=== PATIENT | female | born 1965 | race Caucasian/White ===

== ENCOUNTER 2021-09-17 09:33 | Emergency (ER) | payer BC, SELFPAY ==
[2021-09-17] VITALS (18 sets, daily range): BP systolic 102–123; BP diastolic 60–79; PULSE 56–87; RESP 15–24; TEMP 36.6–37.1; O2SAT 97–100
--- NOTE | ~2021-09-17 | XR_ITS ---
EXAMINATION: XR chest 1V portable DATE: 09/17/2021 10:03 INDICATION: Chest pain TECHNIQUE: frontal view of the chest was obtained. COMPARISON: Chest radiograph dated 04/17/2020 FINDINGS: The lungs remain clear with no focal airspace opacities, pulmonary edema, pleural effusion or pneumot horax. The cardiomediastinal silhouette is normal. Visualized bones and soft tissues are unremarkable . IMPRESSION: 1. No acute cardiopulmonary disease. Reviewed, dictated and finalized at location B.
--- NOTE | 2021-09-17 09:37 | ECG_ITS ---
Measurements Intervals [place] Rate: 71 P: 44 AR: 135 QRS: 13 QRSD: 82 T: 38 QT: 357 QTc: 388 Interpretive Statements SINUS RHYTHM LOW QRS VOLTAGE IN PRECORDIAL LEADS BORDERLINE ECG Electronically Signed On 09-17-2021 10:06:27 CDT by Toñito Orourke D.O.
[2021-09-17] MEDS: Please add drug allergy info to patient profile. 1 EACH XX (09:46)
[2021-09-17 09:53] LABS: Basophils Absolute Auto 0.1 K/mm3 (0.0-0.1); Basophils Percent Auto 0.6 % (0.2-1.2); Eosinophils Absolute Auto 0.1 K/mm3 (0-0.3); Eosinophils Percent Auto 0.6 % (0-4.4); Hematocrit 41.5 % (37.0-47.0); Hemoglobin 13.5 g/dL (12.0-15.0); Immature Granulocyte Absolute 0.03 K/mm3 (0.00-0.031); Immature Granulocyte Percent A 0.2 % (0-0.5); Lymphocytes Absolute Auto 2.32 K/mm3 (0.9-3.2); Lymphocytes Percent Auto 18.8 % (18.3-44.2); Mean Corpuscular HGB Conc 32.5 g/dl (32-36); Mean Corpuscular Hemoglobin 30.3 pg (26-34); Mean Platelet Volume 9.9 fl (7.4-10.4); Monocytes Absolute Auto 0.6 K/mm3 (0.1-0.6); Neutrophils Absolute Auto 9.2 K/mm3 (1.3-6.7); Neutrophils Percent Auto 74.8 % (45.5-73.1); Platelet Count Result 340 k/mm3 (150-375); Red Blood Count 4.46 M/mm3 (4.2-5.4); Red Cell Distribution Width 12.7 % (11.5-14.5); White Blood Count 12.3 K/mm3 (4.5-10.0)
[2021-09-17 10:03] LABS: Prothrombin Time 12.8 Seconds (11.1-14.7)
[2021-09-17 10:04] LABS: Partial Thromboplastin Time 29.2 SECONDS (22.3-36.8)
--- NOTE | 2021-09-17 10:05 | ED.CHESTPAIN ---
HPI - Chest Pain General Chief Complaint: Chest Pain Stated Complaint: CP - from Urgent Care Time Seen by Provider: 09/17/21 09:46 Source: patient Mode of arrival: ambulatory Limitations: no limitations History of Present Illness HPI narrative: 56-year-old female presents today with complaints of bilateral side pain that started last night at midnight and has decreased in intensity but is still there Patient also endorses a small amount of epigastric pain last night that is now resolved. Patient went to [facility] urgent [facility] and was sent here for further evaluation. Patient denies any medical history. Patient does state that she took Tums and Pepcid last night when the discomfort started. Patient denies any recent trauma. Patient states she did do some lifting on Wednesday but has had no issues since last night. Patient denies any alleviating aiding or aggravating factors. Related Data Allergies Allergy/AdvReac Type Severity Reaction Status Date / Time Penicillins AdvReac Rash Verified 09/17/21 09:44 Review of Systems Review of Systems: CONSTITUTIONAL: Denies fever, chills, or sweats. EYES: Denies visual changes, redness, or discharge. ENT: Denies rhinorrhea, congestion, sore throat, or otalgia. CARDIOVASCULAR: Denies chest pain, palpitations, or edema. RESPIRATORY: Denies cough or dyspnea. GASTROINTESTINAL: Epigastric discomfort that is now resolved. Denies abdominal pain, nausea, vomiting, or diarrhea. GENITOURINARY: Denies dysuria or hematuria. SKIN: Denies rash or itching. MUSCULOSKELETAL: Bilateral side pain that started last night. Denies back pain, joint pain, or myalgia. NEUROLOGIC: Denies headache, numbness, dizziness, or weakness. PSYCHIATRIC: Denies anxiety or depression. Exam Narrative: GENERAL: Well-appearing, well-nourished, and in no acute distress. HEAD: Normocephalic, atraumatic. EYES: PERRLA and EOMI. ENT: Nares clear, no rhinorrhea or epistaxis. Mucous membranes moist. Oropharynx without tonsillar hypertrophy exudate or other lesions. Bilateral TMs pearly garcia nonbulging NECK: Supple. No adenopathy or masses. No carotid bruits or JVD CHEST: Clear to auscultation. No respiratory distress. No wheezes rales or rhonchi. non tender HEART: Regular rate and rhythm. No murmur heard. Normal peripheral pulses. ABDOMEN: Soft, nontender, nondistended, normal active bowel sounds. EXTREMITIES: Normal range of motion. No edema. SKIN: Warm, dry, no rash. NEURO: No focal deficits. Alert and oriented x3. PSYCH: Normal mood and affect. Course Course Emergency Course: Discussed results with patient. Patient had denied pain medication earlier. States pain is very minimal. Patient aware chest x-ray negative, troponin negative and EKG appears normal. Patient to be discharged and follow-up with primary care for further management. Vital Signs Vital signs: Vital Signs Temperature 36.6 C 09/17/21 09:48 Pulse Rate 87 09/17/21 09:48 Respiratory Rate 18 09/17/21 09:48 Blood Pressure 123/60 09/17/21 09:48 Pulse Oximetry 100 09/17/21 09:48 Oxygen Delivery Room Air 09/17/21 09:48 Temperature 37.1 C 09/17/21 12:29 Pulse Rate 76 09/17/21 12:15 Respiratory Rate 24 H 09/17/21 12:15 Blood Pressure 120/74 09/17/21 12:15 Pulse Oximetry 100 09/17/21 11:45 Oxygen Delivery Room Air 09/17/21 09:48 MDM - Chest Pain MDM Narrative Medical decision making narrative: 56-year-old female HPI as noted. Patient with bilateral side pain that continues currently. Patient also with episode of epigastric pain which she currently does not have. Chest x-ray negative. WBC 12.3, hemoglobin 13.5, hematocrit 41.5, sodium 138, potassium 4.4, GFR greater than 60, AST and ALT both slightly elevated which patient states is normal for her, troponin less than 0.012. Heart score 3. Differentials as noted. Patient to be discharged for further work-up and to return with any new or worsening symptoms. Flavio
[2021-09-17 10:10] LABS: Alanine Aminotransferase 50 U/L (6-35); Albumin Level 4.7 g/dL (3.5-5.1); Alkaline Phosphatase 126 U/L (38-126); Anion Gap 6 mmol/L (8-16); Aspartate Amino Transferase 48 U/L (14-36); Bilirubin,Total 0.3 mg/dL (0.2-1.3); Blood Urea Nitrogen 14 mg/dL (7-17); Calcium 8.9 mg/dL (8.4-10.2); Carbon Dioxide 28 mmol/L (22-30); Chloride 104 mmol/L (98-107); Estimated CRCL calculation 78 ml/min; Estimated Glomerular Filt Rate > 60; Glucose 128 mg/dL (65-110); Lipase 150 U/L (23-300); Potassium 4.4 mmol/L (3.4-5.0); Sodium 138 mmol/L (137-145)
[2021-09-17 10:21] LABS: Troponin I < 0.012 ng/mL (0.000-0.034)
--- NOTE | 2021-09-17 11:45 | PC.NURSE ---
PT DENIES ANY PAIN AND REFUSES TORADOL
== END 2021-09-17 12:30 | disposition home or self-care (01) ==
PROVIDERS: Family Medicine; Emergency Provider Nurse Practitioner Family; PCP Internal Medicine
DX: R07.89 Other chest pain (principal); R94.31 Abnormal electrocardiogram [ECG] [EKG]
CPT/HCPCS: 36415; 71045; 80053; 83690; 84484; 85025; 85610; 85730; 93005; 99284